=== PATIENT | male | born 1940 | race African-American/Black ===

== ENCOUNTER 2018-09-11 15:56 | Emergency (ER) | payer OTHER ==
[~2018-09-11] VITALS: Ht 172.7 cm; Wt 74.8 kg
[2018-09-11 16:04] VITALS: Ht 172.7 cm; Wt 74.8 kg
[2018-09-11 16:40] LABS: BASOPHIL % 1.1 % (0-2); PLATELET COUNT 188 x10^3mcL (130-400)
[2018-09-11 16:41] LABS: RED CELL DISTRIBUTION WIDTH 19.9 % (11.5-14.5)
[2018-09-11 16:45] LABS: CALCIUM 9.4 mg/dL (8.5-10.1); CARBON DIOXIDE 37.1 mmol/L (21-32); CHLORIDE SERUM 101 mmol/L (98-107); GLUCOSE SERUM 150 mg/dL (74-106); SODIUM SERUM 144 mmol/L (136-145)
[2018-09-11 20:34] VITALS: BP 148/73
== END 2018-09-11 20:34 | disposition home or self-care (01) ==
LOC: ED 15:56
PROVIDERS: Emergency Medicine
DX: T82.838A Hemorrhage due to vascular prosthetic devices, implants and grafts, initial encounter (principal); D68.59 Other primary thrombophilia; I10 Essential (primary) hypertension
CPT/HCPCS: 36415

== ENCOUNTER 2018-11-06 15:47 | Inpatient (IN) | payer OTHER ==
[~2018-11-06] VITALS: Ht 177.8 cm; Wt 62.9 kg
[2018-11-06 16:01] VITALS: Ht 177.8 cm; Wt 62.9 kg
--- NOTE | 2018-11-06 16:39 | NUR ---
INFORMED DR JOHNSON VASCULAR DOPPLER WAS USED AND NO PEDAL PULSES WERE DETECTED TO R SIDE. PT BIBA FROM LOCAL CLINIC TO BE SEEN FOR "GANGRENOUS TOE" PER MEDIC. MEDIC STS PT LIVES AT A [facility]. PT ARRIVED TO ED VIA AMBULANCE WITH CAREGIVER FROM FACILITY BESIDE. CAREGIVER STATED "I AM NEW TO THE FACILITY" AND IS A POOR HISTORIAN FOR PT. PT IS ORIENTED TO HIS NAME, CURRENT PRESIDENT, , CURRENT LOCATION. PT STS HIS FOOT "HAS BEEN THIS WAY FOR ABOUT A WEEK." PT NORMALLY W/C BOUND PER MEDIC FOR APPROX ONE YEAR. PT'S W/C IS AT THE BEDSIDE WITH HIS NAME LABELED ON IT. FEET TO R AND L SIDE ARE WARM TO TOUCH. THE GREAT TOE, 2ND TOE, AND 3RD TOE ARE DRY TO TOUCH WITH DARK DRY APPEARANCE TO SKIN; SKIN ON R GREAT TOE APPEARS TO HAVE SLOUGHED OFF WITH A PINK SHINY CENTER AND WHITE EDGES SURROUNDING WOUND. CAP REFILL UNABLE TO BE DETECTED TO R SIDE TOES AND VERY FAINT APPEARANCE IS PRESENT ON L FT TOES.
--- NOTE | 2018-11-06 16:45 | NUR ---
MSE COMPLETED BY DR JOHNSON. XR TEAM AT BEDSIDE FOR EXAM.
[2018-11-06 17:07] LABS: BASOPHIL % 0.3 % (0-2); PLATELET COUNT 152 x10^3mcL (130-400)
[2018-11-06 17:08] LABS: RED CELL DISTRIBUTION WIDTH 20.1 % (11.5-14.5)
[2018-11-06 17:16] LABS: CALCIUM 8.3 mg/dL (8.5-10.1); CARBON DIOXIDE 30.9 mmol/L (21-32); CHLORIDE SERUM 99 mmol/L (98-107); CREATININE SERUM 3.7 mg/dL (0.7-1.3); GLUCOSE SERUM 158 mg/dL (74-106); POTASSIUM SERUM 3.8 mmol/L (3.5-5.1); SODIUM SERUM 140 mmol/L (136-145)
--- NOTE | 2018-11-06 17:25 | NUR ---
US AT BEDSIDE
[2018-11-06 17:30] LABS: ALKALINE PHOSPHATASE 78 U/L (46-116); ALT/SGPT 6 U/L (16-63); AST/SGOT 8 U/L (15-37); BILIRUBIN TOTAL 0.5 mg/dL (0.20-1.00); C REACTIVE PROTEIN 3.1 mg/dL (<=0.9); URIC ACID 2.1 mg/dL (3.5-7.2)
[2018-11-06 17:34] LABS: ALBUMIN 2.8 g/dL (3.4-5.0)
[2018-11-06 18:02] LABS: ERYTHROCYTE SED RATE 82 mm/hr (0-20)
--- NOTE | 2018-11-06 18:30 | NUR ---
PT READJUSTED SELF ON GUSIMONE. BLANKET PLACED BACK ON PATIENT. REMAINS ON FULL MONITORS. SBR.
--- NOTE | 2018-11-06 19:06 | NUR ---
PER PHARMACY OK TO MIX 1G VANCOMYCIN WITH 250ML D5 BAG AND INFUSE OVER 90 MINS.
--- NOTE | 2018-11-06 20:10 | NUR ---
REPORT CALLED AND GIVEN TO ELAINA SUMNER.
--- NOTE | 2018-11-06 20:17 | NUR ---
RECEIVED PT FROM ED VIA TRAVIS, CAME IN DUE TO TOE PAIN AND WOUND X1 WEEK. AAOX4, BUT HAS PERIODS OF FORGETFULNESS AND CONFUSION. ABLE TO FOLLOW SIMPLE COMMANDS. SPEECH IS CLEAR. HAND TUBE CARRIER ARE WEAK. RIGHT EYE BLIND. LEFT EYE PUPIL IS SLUGGISH. NO SOB NOTED, LUNG SOUNDS DIMINISHED ON AUSCULTATION, O2 SAT=98%, RA. DENIES CHEST PAIN/PRESSURE. DENIES ABDOMINAL DISCOMFORT. W/ SOFT BM TODAY. PT STATED THAT HE STILL URINATES, ON HD EVERY MWF. W/ RUE AV SHUNT, BRUIT AND THRILL PRESENT. W/ +2 EDEMA ON BILATERAL FEET AND DECREASED SENSATION ON BILATERAL FEET. UNABLE TO PALPATE PEDAL PULSES AT THIS TIME, WILL ATTEMPT TO USE DOPPLER. RECEIVED PT FROM ED W/ VANCOMYCIN ONGOING. IV SITE PATENT AND INTACT. W/ SCABS ON BLE AND OPEN WOUND W/ DISCOLORATIONS ON THE RIGHT 1ST-2ND TOE, ALTERATION HAND. SIDE RAILS UPX2. CALL LIGHT ON REACH. HOB ELEVATED AT 30 DEG. ENDORSED TO PRIMARY NURSE DEMIAN FOR CONTINUITY OF CARE
[2018-11-06 20:41] VITALS: BP 135/47
--- NOTE | 2018-11-06 21:30 | NUR ---
VERY FAINT PEDAL PULSES WERE NOTED ON BILATERAL FEET USING A DOPPLER. NOTED PT ALSO HAS A TRACE EDEMA ON THE LEGS
--- NOTE | 2018-11-06 21:35 | NUR ---
PT RECEIVED FROM RESOURCE NURSE. PT A/O X4, FORGETFUL WITH EPISODES OF CONFUSION, ABLE TO MAKE NEEDS KNOWN. MED-SURG, DENIES CP/PRESSURE. MARILEE PEDAL PULSES AUSCULTATED WITH DOPPLER, EDEMA NOTED TO BLE. BREATHING IS EVEN AND UNLABORED ON RA, DENIES SOB, NO RESP DISTRESS NOTED. ABD SOFT AND NONDISTENDED, DENIES N/V. VOIDS FREELY, URINAL AT BEDSIDE. PT ON HEMODIALYSIS ON MWF, RUE AV SHUNT WITH GOOD BRUIT AND THRILL NOTED. GENERALIZED WEAKNESS, ON AIR MATTRESS. WHEELCHAIR AT BEDSIDE. PT ADMITTED FOR RIGHT DIABETIC FOOT INFECTION. SCABS NOTED TO BLE; OPEN WOUND NOTED TO RIGHT GREAT AND SECOND TOES, AIR MOVING TECHNICIAN. PT DENIES HAVING ANY PAIN AT THIS TIME. IV ABX ONGOING TO LAC, PATENT AND INTACT, SITE WNL. NO ACUTE DISTRESS NOTED. ORIENTED PT TO ROOM AND CALL LIGHT. BED IN LOWEST SETTING, SIDE RAILS UP X2, CALL LIGHT WITHIN REACH. WILL CONT TO MONITOR.
--- NOTE | 2018-11-06 23:15 | NUR ---
SPOKE WITH DR WARD REGARDING PT'S PENDING WARFARIN MED. PER DR WARD, "SPOKE WITH PT'S BOARD AND CARE AND PT'S CAREGIVER ABOUT THE WARFARIN, BUT THEY DO NOT KNOW WHY THE PT IS TAKING IT OR THE DOSE."
[2018-11-07 00:38] LABS: microscopic required? YES; urine erythrocyte 1+ (NEGATIVE)
[2018-11-07 00:55] LABS: AMPHETAMINE QUAL UR NONE DETECTED (See below)
--- NOTE | 2018-11-07 01:10 | NUR ---
PT IS ALERT AND AWAKE. BREATHING IS EVEN AND UNLABORED. PT DENIES HAVING ANY PAIN AT THIS TIME. NO ACUTE DISTRESS AT THIS TIME. BED ALARM ON. CALL LIGHT IS WITHIN REACH. WILL CONTINUE TO MONITOR.
--- NOTE | 2018-11-07 05:01 | NUR ---
PT SLEPT AT INTERVALS THROUGHOUT THE SHIFT. BREATHING IS EVEN AND UNLABORED. NO RESP DISTRESS. PATIENT DOES NOT REPORT OF HAVING ANY PAIN AT THIS TIME. NO ACUTE DISTRESS. CALL LIGHT WITHIN REACH.
[2018-11-07 05:50] VITALS: BP 125/53
--- NOTE | 2018-11-07 05:56 | NUR ---
DRSG CHANGE COMPLETED ORDERED. APPLIED THERAHONEY W ADAPTER, 4X4 GAUZE, KERLIX, AND JEANETTE WRAP TO RIGHT FOOT. PT TOLERATED WELL. NO ACUTE DISTRESS NOTED. WILL CONTINUE TO MONITOR.
--- NOTE | 2018-11-07 06:50 | NUR ---
RESIDENT AND MED STUDENT AT BEDSIDE ATTEMPTING TO AUSCULATE PEDAL PULSES WITH DOPPLER. RT FOOT DRSG WAS REMOVED. PER MED STUDENT, "WILL APPLY NEW DRSG." NO ACUTE DISTRESS NOTED. WILL ENDORSE CARE TO AM NURSE.
--- NOTE | 2018-11-07 07:00 | NUR ---
RECEIVED BEDSIDE REPORT FROM ANIMAL CARE PROVIDER NURSE AT THIS TIME. PATINET RESTING IN BED. NO APPARENT DISTRESS OR DISCOMFORT NOTED. BREATHING EVEN AND UNLABORED. NO RESPIRATORY DISTRESS OR DISCOMFORT NOTED. PATIENT DENIES CHEST PAIN/DISCOMFORT. IV PATENT AND INTACT. DRESSING NOTED TO RLE. ALL QUESTIONS AND CONCERNS ADDRESSED. ALL NEEDS ATTENDED TO. WILL CONTINUE TO MONITOR
--- NOTE | 2018-11-07 07:23 | NUR ---
PT IN NO ACUTE DISTRESS. CONTINUITY OF CARE ENDORSED TO ELVIRA DELANEY. ALL QUESTIONS AND CONCERNS ADDRESSED.
[2018-11-07 08:44] VITALS: BP 148/72
--- NOTE | 2018-11-07 10:27 | NUR ---
ALL MORNING MEDICATIONS ADMINISTERED. PATIENT TOLERATED MEDICATIONS WELL. NO APPARENT ADVERSE EFFECTS NOTED. ALL NEEDS ATTENDED TO. WILL CONTINUE TO MONITOR
--- NOTE | 2018-11-07 11:56 | NUR ---
PATIENT BLOOD SUGAR 98 AT THIS TIME. NO INSULIN COVERAGE REQUIRED. ALL NEEDS ATTENDED TO. WILL CONTINUE TO MONITOR
--- NOTE | 2018-11-07 13:00 | NUR ---
PATIENT SITTING UP IN BED EATING LUNCH AT THIS TIME. PATIENT TOLERATED DIET WELL. NO APPARENT DISTRESS OR DISCOMFORT NOTED. ALL NEEDS ATTENDED TO. WILL CONTINUE TO MONITOR
--- NOTE | 2018-11-07 16:59 | NUR ---
PATIENT BLOOD SUGAR 107 AT THIS TIME. NO INSULIN COVERAGE REQUIRED. ALL NEEDS ATTENDED TO. WILL CONTINUE TO MONITOR. CALLED PATIENT AGUSTÍN ARAGON AT THIS TIME TO GET CONSENT FOR HEMODIALYSIS. PATIENT REFUSING TO SIGN ANY DOCUMENTATION AT THIS TIME. NO ANSWER. LEFT VOICE MAIL FOR SON TO CALL [employer] AWAITING CALL BACK AT THIS TIME. ALL QUESTIONS AND CONCERNS ADDRESSED. ALL NEEDS ATTENDED TO. WILL CONTINUE TO MONITOR
[2018-11-07 17:47] VITALS: BP 146/70
--- NOTE | 2018-11-07 18:20 | NUR ---
PATIENT RESTING COMFORTABLY IN BED AT THIS TIME. NO APPARENT DISTRESS OR DISCOMFORT NOTED. IV PATENT AND INTACT. ALL QUESTIONS AND CONCERNS ADDRESSED. ALL NEEDS ATTENDED TO. SAFETY PRECAUTIONS MAINTAINED. WILL ENDORSE ALL CARE TO MANAGER TALENT ACQUISITION NURSE
--- NOTE | 2018-11-07 19:30 | NUR ---
RECEIVED PT FROM DAY SHIFT RN. PT IS ALERT AND ORIENTED TO PERSON PLACE AND SITUATION. CONFUSED AT TIMES. PT CURRENTLY RESTING IN BED. DENIES PAIN. NO SIGNS OR SYMPTOMS OF CHEST PAIN OR SHORTNESS OF BREATH. NO USE OF ACCESSORY MUSCLES OR LABORED BREATHING. NO ACUTE DISTRESS NOTED. BLE +2 PITTING EDEMA NOTED. SHAWNA AV SHUNT NOTED, CDI. BLE SCABS AND OPEN WOUND WITH DISCOLORATION NOTED TO RIGHT 1ST AND 2ND GREAT TOES. LAC 22G IV CLEAN DRY AND INTACT. SAFETY MEASURES ARE IN [place]. BED IS IN THE LOWEST POSITION. CALL LIGHT IS WITHIN REACH. WILL CONTINUE TO MONITOR PT.
[2018-11-07 20:00] VITALS: BP 140/67
--- NOTE | 2018-11-07 20:49 | NUR ---
DIALYSIS CURRENTLY AT THE BEDSIDE. PT TOLERATING WELL. CANNOT ADMINISTER ANY MEDICATIONS AT THIS TIME.
--- NOTE | 2018-11-08 00:02 | NUR ---
PT COMPLETED DIALYSIS WITH 2 L OUT. WILL HOLD BP MEDICATIONS TO REDUCE THE RISK OF HYPOTENSION. PT TOLERATED PROCEDURE WELL. SAFETY MEASURES ARE IN PLACE. BED IN THE LOWEST POSITION. WILL CONTINUE TO MONITOR.
--- NOTE | 2018-11-08 01:36 | NUR ---
PT CURRENTLY RESTING IN BED. NO DISTRESS NOTED. NO USE OF ACCESSORY MUSCLES OR LABORED BREATHING.
--- NOTE | 2018-11-08 01:36 | NUR ---
RESIDENT AWARE OF PT REFUSING MEDICATIONS. NO NEW ORDERS AT THIS TIME.
[2018-11-08 05:20] VITALS: BP 142/62
--- NOTE | 2018-11-08 06:28 | NUR ---
PT SLEPT THROUGHOUT THE REMAINDER OF THE NIGHT. PT HAD BM. CLEANED AND REPOSITIONED. REFUSES AM PROTONIX. SAFETY MEASURES ARE IN PLACE. BED IN THE LOWEST POSITION. CALL LIGHT WITHIN REACH. WILL CONTINUE TO MONITOR.
--- NOTE | 2018-11-08 07:00 | NUR ---
RECEIVED BEDSIDE REPORT FROM ERP SPECIALIST NURSE AT THIS TIME. PATIENT RESTING COMFORTABLY IN BED. NO APPARENT DISTRESS OR DISCOMFORT NOTED. BREATHING EVEN AND UNLABORED. NO RESPIRATORY DISTRESS OR DISCOMFORT NOTED. NO INDICATION OF SHORTNESS OF BREATH. NO INDICATION OF CHEST PAIN/PRESSURE AT THIS TIME. IV PATENT AND INTACT. DRESSING NOTED TO RIGHT LOWER EXTREMITY, CDI. SCABS NOTED TO BLE, RESIDENCE LEASING AGENT. ALL QUESTIONS AND CONCERNS ADDRESSED. ALL NEEDS ATTENDED TO. WILL CONTINUE TO MONITOR
[2018-11-08 07:20] LABS: CALCIUM 8.4 mg/dL (8.5-10.1); CARBON DIOXIDE 28.8 mmol/L (21-32); CHLORIDE SERUM 100 mmol/L (98-107); GLUCOSE SERUM 89 mg/dL (74-106); SODIUM SERUM 141 mmol/L (136-145)
[2018-11-08 07:38] LABS: BASOPHIL % 0.8 % (0-2); PLATELET COUNT 165 x10^3mcL (130-400)
[2018-11-08 07:39] LABS: RED CELL DISTRIBUTION WIDTH 20.4 % (11.5-14.5)
[2018-11-08 08:12] VITALS: BP 132/59
--- NOTE | 2018-11-08 10:00 | NUR ---
MORNING MEDICATIONS ADMINISTERED. PATIENT TOLERATED MEDICATIONS WELL. NO APPARENT ADVERSE EFFECTS NOTED. ALL NEEDS ATTENDED TO. WILL CONTINUE TO MONITOR
--- NOTE | 2018-11-08 11:23 | NUR ---
PATIENT BLOOD SUGAR 159. 3 UNITS INSULIN REQUIRED. PATIENT REFUSING INSULIN COVERAGE AT THIS TIME. WILL NOTIFY DR VIVAS. WILL CONTINUE TO MONITOR
--- NOTE | 2018-11-08 13:24 | NUR ---
PATIENT REFUSING LUNCH AT THIS TIME. PATIENT ALSO REFUSING TO BE TURNED AT THIS TIME. PATIENT STATES HE DOES NOT WANT TO BE BOTHERED. ALL NEEDS ATTENDED TO. WILL TRY AGAIN LATER.
--- NOTE | 2018-11-08 16:12 | NUR ---
SPOKE TO DR VIVAS AT THIS TIME REGARDING PHARMACY CALLING FOR COUMADIN ORDER FOR 1700. PER DR VIVAS, SHE WILL INPUT ORDER FOR COUMADIN. AWAITING ORDER AT THIS TIME. ALL NEEDS ATTENDED TO. WILL CONTINUE TO MONITOR
--- NOTE | 2018-11-08 17:00 | NUR ---
PATIENT REFUSING ACCUCHECKS AND MEDICATIONS AT THIS TIME. PATIENT AGREES TO TAKE COUMADIN, BUT NO OTHER MEDICATION. PATIENT TOLERATED MEDICATION WELL. DR VIVAS AWARE. ALL NEEDS ATTENDED TO. WILL CONTINUE TO MONITOR
[2018-11-08 17:01] VITALS: BP 123/60
--- NOTE | 2018-11-08 19:10 | NUR ---
REPORT RECEIVED FROM DAY SHIFT RN. PATIENT WAS SEEN AND IS RESTING COMFORTABLY IN BED. NO DISTRESS NOTED. BREATHING EVEN AND UNLABORED ON ROOM AIR. NO SOB OR RESP DISTRESS NOTED. DENIES CHEST PAIN/PRESSURE. NO C/O PAIN. NO IV ACCESS. PATIENT REFUSING NEW IV INSERTION. PAGE GATED DR WARD AND MADE HIM AWARE. EDUCATED PATIENT ON THE RISK OF NOT IV ACCESS AND THE BENEFITS. PATIENT STILL REFUSED. STATES "I DONT NEED ONE. WHY DO I NEED THAT. I DONT NEED IT". SHAWNA AV SHUNT. HD PATIENT. ON AIR MATTRESS. BLE SCABS, LISA. RIGHT FOOT W/ KERLIX WRAP, CDI. COMFORT AND SAFETY MEASURES IN PLACE. CALL LIGHT IS WITHIN REACH. BED IS LOCKED AND IN THE LOWEST POSITION. SIDE RAILS UP X2. WILL CONTINUE TO MONITOR.
--- NOTE | 2018-11-08 19:13 | NUR ---
PATIENT RESTING COMFORTABLY IN BED AT THIS TIME. NO APPARENT DISTRESS OR DISCOMFORT NOTED. PATIENT PULLED IV OUT AND REFUSING NEW IV INSERTION AT THIS TIME. ALL QUESTIONS AND CONCERNS ADDRESSED. SAFETY PRECAUTIONS MAINTAINED. ALL NEEDS ATTENDED TO. WILL ENDORSE ALL CARE TO KNOTTING MACHINE OPERATOR PORTABLE NURSE
[2018-11-08 20:41] VITALS: BP 130/61
--- NOTE | 2018-11-08 21:16 | NUR ---
ATTEMPTED TO DO DRESSING CHANGE TO RIGHT FOOT. PATIENT REFUSED.
--- NOTE | 2018-11-09 01:25 | NUR ---
RESTING IN BED WITH EYES CLOSED. NO DISTRESS NOTED. BREATHING EVEN AND UNLABORED. NO S/S OF PAIN NOTED. SAFETY MEASURES IN PLACE. CALL LIGHT IS WITHIN REACH. WILL CONTINUE TO MONITOR.
[2018-11-09 05:12] VITALS: BP 133/58
--- NOTE | 2018-11-09 05:49 | NUR ---
LOW BS 56 AND REPEATED AT 60. GAVE APPLE JUICE X2 WITH 2 PACKETS OF SUGAR. WILL REASSESS. MILD SHAKINESS NOTED TO BLE.
--- NOTE | 2018-11-09 06:13 | NUR ---
BS NOW 77 AFTER APPLE JUICE X2 W/ SUGAR PACKET X2 WAS GIVEN. ADVISED PATIENT TO DRINK 1 MORE APPLE JUICE SINCE BS IS ON THE LOW SIDEM BUT PATIENT REFUSED. STATES "NO I DON'T NEED ANOTHER ONE. MY SUGAR WON'T DROP". ADVISED PATIENT TO MAKE SURE HE EATS BREAKFAST. VERBALIZED UNDERSTANDING. PAGE GATED DR WARD AND MADE HIM AWARE. ATTEMPTED TO PERFORM DRESSING CHANGE TO RIGHT FOOT DRESSING, BUT PATIENT REFUSED DRESSING CHANGE. STATED "ONLY LOOK. DON'T TOUCH IT". WILL CONTINUE TO MONITOR. NO DISTRESS NOTED. CALL LIGHT IS WITHIN REACH.
--- NOTE | 2018-11-09 06:32 | NUR ---
RESTED IN LONG INTERVALS THROUGHOUT THE NIGHT. NO ACUTE CHANGES NOTED. BREATHING EVEN AND UNLABORED ON ROOM AIR. NO SOB OR RESP DISTRESS NOTED. DENIES PAIN AND CHEST PAIN. NO IV ACCESS. REFUSED. RIGHT FOOT DRESSING IN PLACE, CDI. REFUSED DRESSING CHANGE. ALL NEEDS AND CONCERNS ADDRESSED. SAFETY MEASURES IN PLACE. CALL LIGHT IS WITHIN REACH. WILL CONTINUE TO MONITOR AND ENDORSE CARE TO DAY SHIFT RN.
[2018-11-09 06:47] LABS: BASOPHIL % 0.7 % (0-2); PLATELET COUNT 166 x10^3mcL (130-400)
--- NOTE | 2018-11-09 06:56 | NUR ---
PATIENT CLEANED AND CHANGED W/ WARD PASCAL. PATIENT MADE COMFORTABLE IN BED. NO DISTRESS NOTED. WILL ENDORSE CARE TO DAY SHIFT RN
--- NOTE | 2018-11-09 07:00 | NUR ---
RECEIVED BEDSIDE REPORT FROM COLLEGE ATHLETE NURSE AT THIS TIME. PATIENT RESTING COMFORTABLY IN BED. NO APPARENT DISTRESS OR DISCOMFORT NOTED. BREATHING EVEN AND UNLABORED. NO RESPIRATORY DISTRESS OR DISCOMFORT NOTED. NO INDICATION OF SHORTNESS OF BREATH. NO INDICATION OF CHEST PAIN/PRESSURE AT THIS TIME. PATIENT HAS NO IV ACCESS AT THIS TIME. REFUSING IV INSERTION. DRESSING NOTED TO RIGHT LOWER EXTREMITY, CDI. SCABS NOTED TO BLE, LIVESTOCK SALES REPRESENTATIVE. ALL QUESTIONS AND CONCERNS ADDRESSED. ALL NEEDS ATTENDED TO. WILL CONTINUE TO MONITOR
[2018-11-09 07:03] LABS: CALCIUM 8.4 mg/dL (8.5-10.1); CARBON DIOXIDE 27.5 mmol/L (21-32); CHLORIDE SERUM 104 mmol/L (98-107); GLUCOSE SERUM 63 mg/dL (74-106); PHOSPHOROUS 5.2 mg/dL (2.5-4.9); POTASSIUM SERUM 4.5 mmol/L (3.5-5.1); SODIUM SERUM 141 mmol/L (136-145)
[2018-11-09 07:07] LABS: CREATININE SERUM 4.2 mg/dL (0.7-1.3)
[2018-11-09 07:23] LABS: RED CELL DISTRIBUTION WIDTH 21.2 % (11.5-14.5)
[2018-11-09 08:52] VITALS: BP 124/73
--- NOTE | 2018-11-09 09:53 | NUR ---
MORNING MEDICATIONS ADMINISTERED AT THIS TIME. PATIENT TOLERATED WELL. NO APPARENT ADVERSE EFFECTS NOTED. ALL NEEDS ATTENDED TO. WILL CONTINUE TO MONITOR
--- NOTE | 2018-11-09 11:57 | NUR ---
PATIENT BLOOD SUGAR 104 AT THIS TIME. NO INSULIN COVERAGE REQUIRED. ALL NEEDS ATTENDED TO. WILL CONTINUE TO MONITOR
--- NOTE | 2018-11-09 16:52 | NUR ---
PATIENT BLOOD SUGAR 176 AT THIS TIME. PATIENT REFUSING INSULIN COVERAGE AT THIS TIME. PATIENT AGREEING TO DRESSING CHANGE TO RIGHT LOWER EXTREMITY. THERAHONEY APPLIED AND WRAPPED WITH JEANETTE BANDAGE. PATIENT TOLERATED ACTIVITY WELL. NO C/O PAIN/DISCOMFORT. ALL NEEDS ATTENDED TO. WILL CONTINUE TO MONITOR
[2018-11-09 17:07] VITALS: BP 143/80
--- NOTE | 2018-11-09 19:20 | NUR ---
PATIENT RESTING COMFORTABLY IN BED AT THIS TIME. NO APPARENT DISTRESS OR DISCOMFORT NOTED. PATIENT HAS NO IV ACCESS. ALL QUESTIONS AND CONCERNS ADDRESSED. SAFETY PRECAUTIONS MAINTAINED. ALL NEEDS ATTENDED TO. ENDORSED ALL CARE TO INSURANCE CONSULTANT NURSE
--- NOTE | 2018-11-09 19:30 | NUR ---
RECEIVED PT RESTING IN BED, NO ACUTE DISTRESS NOTED. PT SLEEPY BUT EASY TO AROUSE. AOX2 (FORGETFUL AT TIMES). ABLE TO REORIENT. PT BLIND IN RT EYE. MEDSURG PT,DENIES CP. PULSES PALPABLE BUE, WEAK LEFT PEDAL. UNABLE TO ASSESS RT PEDAL, RT FOOT DSG IN PLACE. RESP EVEN AND UNLABORED ON RA, DENIES SOB. DIM BILAT BASES. ABD SOFT, ROUND, DENIES ABD PAIN. HD PT, SHAWNA AV SHUNT, +THRILL/+BRUIT NOTED. PT INCONTINENT AT TIMES. GENERALIZED WEAKNESS, W/C AT BEDSIDE. ON AIR MATTRESS. RT FOOT WRAPPED IN DSG, CDI. BLE SCABS NOTED, INDUSTRIAL TWISTING MACHINE OPERATOR. DENIES PAIN.DSG CHANGED TODAY DURING DAYSHIFT. PT REFUSING IV ACCESS, REFUSAL FORM IN CHART. ALL COMFORT AND SAFETY MEASURES PROVIDED FOR, CALL LIGHT WITHIN REACH, BED IN LOWEST POSITION, WILL CONTINUE TO MONITOR.
[2018-11-09 21:08] VITALS: BP 149/63
--- NOTE | 2018-11-09 21:20 | NUR ---
PT TOLERATED MEDICATIONS WELL, PROVIDED REG 6 U INSULIN FOR BLOOD SUGAR 210, PROVIDED PT SANDWICH AND JUICE D/T PT STATES NOT EATING DINNER. EDUCATED PT IN REGARDS TO S/S OF HYPOGLYCEMIA, PT VERBALIZES UNDERSTANDING, CALL LIGHT WITHIN REACH, BED IN LOWEST POSITION, WILL CONTINUE TO MONITOR.
--- NOTE | 2018-11-10 01:45 | NUR ---
PER ORNAMENTAL METAL ERECTOR, PT HAS LARGE STOOL, PT CLEANED CAREFULLY D/T TENDERNESS IN PRIVATE AREA, PT TOLERATED WELL. PT RESTING IN BED, EYES CLOSED, NO S/S OF PAIN NOTED. WILL CONTINUE TO MONITOR.
--- NOTE | 2018-11-10 05:05 | NUR ---
PT RESTED IN INTERVALS DURING SHIFT, NO ACUTE CHANGES OCCURRING OVERNIGHT. PT CALM AND COOPERATIVE WITH CARE DURING SHIFT, PT HAD ONE BM DURING SHIFT, DENIES N/V/D. ALL COMFORT AND SAFETY MEASURES PROVIDED FOR, CALL LIGHT WITHIN REACH,BED IN LOWEST POSITION, WILL CONTINUE TO MONITOR.
[2018-11-10 05:24] VITALS: BP 138/74
--- NOTE | 2018-11-10 05:40 | NUR ---
UPON PROVIDING PT MORNING MEDICATION, INQUIRED IF PHOTOGRAPHS CAN BE TAKEN SO PROGRESSION OF HEALING CAN BE TRACKED, PT SHOOK HEAD VIGORIOUSLY AND STATES "DON'T GO MESSING WITH MY LEGS RIGHT NOW, I FINALLY FEEL GOOD". EDUCATED PT MEDICATION CAN BE PROIVDED TO EASE THE DISCOMFORT AND PHOTOGRAPHS WILL NEED TO BE TAKEN TODAY. PT REPORTS "LATER ON TODAY IS FINE, JUST NOT RIGHT NOW". PT WISHES WILL BE RESPECTED AT THIS TIME, WILL ATTEMPT TO ASK AGAIN BEFORE END OF SHIFT. CALL LIGHT WITHIN REACH, BED IN LOWEST POSITION, WILL CONTINUE TO MONITOR.
--- NOTE | 2018-11-10 06:00 | NUR ---
RETURNED TO PT ROOM TO ASK IF THE EXPOSED SKIN ON HIS BLE CAN BE PHOTOGRAPHED D/T [facility] FOR SKIN DOCUMENTATION QMONDAY. INFORMED PT I WILL LEAVE HI SDSG TO HIS FOOT IN PLACE AND ONLY TAKE PICTURES OF HIS UNCOVERED SKIN TO HELP OUT DAYSHIFT. PT REPORTS "THEY CAN DO IT, THEY CAN DO IT!" INFORMED PT DAYSHIFT IS BUSIER THAN VENEER GLUE SPREADER AND IT IS HELPFUL FOR US TO TAKE THEM DURING NOC SHIFT, PT BECOMES AGITATED AND STATES "THEY CAN DO IT ALL AT ONCE!". WILL RESPECT PT WISHES AT THIS TIME AND ENDORSE TO DAYSHIFT. CALL LIGHT WITHIN REACH, BED IN LOWEST POSITION, WILL CONTINUE TO MONITOR.
[2018-11-10 06:33] LABS: CARBON DIOXIDE 27.5 mmol/L (21-32); CHLORIDE SERUM 102 mmol/L (98-107); GLUCOSE SERUM 111 mg/dL (74-106); POTASSIUM SERUM 5.4 mmol/L (3.5-5.1); SODIUM SERUM 140 mmol/L (136-145)
[2018-11-10 06:40] LABS: CREATININE SERUM 5.1 mg/dL (0.7-1.3)
[2018-11-10 06:48] LABS: BASOPHIL % 0.5 % (0-2); PLATELET COUNT 180 x10^3mcL (130-400)
[2018-11-10 07:15] LABS: RED CELL DISTRIBUTION WIDTH 21.1 % (11.5-14.5)
--- NOTE | 2018-11-10 07:39 | NUR ---
A+OX3, BLIND IN R EYE, MEDSURG, WEAK PEDAL PULSES, BUE TRACE EDEMA, TAYO GOSUNDS DIMINISHED, TOLERATING RA, BOWEL SOUNDS ACTIVE, INCONTINENT AT TIMES, GENERALIZED WEAKNESS, AIT MATTRESS ON, WC AT BEDSIDE, BLE SCABS DRY WALL APPLICATOR, R 1ST AND 2ND TOE OPEN WOUND WITH DISCOLORATION WITH DRESSING CDI, NO IV ACCESS, PT REFUSING IV ACCESS, MD AWARE.
[2018-11-10 08:53] VITALS: BP 160/67
--- NOTE | 2018-11-10 11:50 | NUR ---
PT RESTING IN BED, NO RESPIRATORY DISTRESS NOTED, DENIES PAIN, CALL LIGHT WITHIN REACH.
--- NOTE | 2018-11-10 12:32 | NUR ---
PT VOIDED AND HAD BM, LINENS AND GOWN CHANGED, PT PULLED AND REPOSITIONED TO R SIDE, PT RESISTIVE TO CARE, VERBALLY ABUSIVE TO STAFF, MEDICAL PSYCHOTHERAPIST ASSISTING PT TO EAT LUNCH, CALL LIGHT WITHIN REACH.
--- NOTE | 2018-11-10 14:14 | NUR ---
PT RESTING IN BED, NO RESPRIATORY DISTRESS NOTED, DENIES PAIN, CALL LIGHT WITHIN REACH.
--- NOTE | 2018-11-10 15:22 | NUR ---
PER LEMUEL DIALYSIS NURSE, PT TO RECEIVE DIALYSIS AFTER 1700.
--- NOTE | 2018-11-10 15:22 | NUR ---
PT RESTING IN BED, NO RESPIRATORY DISTRESS NOTED, DENIES PAIN, CALL LIGHT WITHIN REACH.
--- NOTE | 2018-11-10 15:52 | NUR ---
WOUND TO R FOOT, R 1ST AND 2ND TOES CLEANSED WITH WOUND CLEANSER, PATTED DRY, COVERED IN THERAHONEY, COVERED IN 4X4, WRAPPED IN KERLIX AND JEANETTE WRAP. PICTURES TAKEN AND PLACED IN CHART. NO RESPRIATORY DISTRESS NOTED, CALL LIGHT WITHIN REACH.
--- NOTE | 2018-11-10 17:02 | NUR ---
PT RESTING IN BED, NO RESPIRATORY DISTRESS NOTED, DENIES PAIN, CALL LIGHT WITHIN REACH.
--- NOTE | 2018-11-10 17:33 | NUR ---
PER DIALYSIS NURSE, PT TO HAVE HD AT 2030.
[2018-11-10 17:44] VITALS: BP 149/78
--- NOTE | 2018-11-10 18:52 | NUR ---
PT VOIDED AND HAD SOFT BM, LINENS CHANGED, NO RESPRIATORY DISTRESS NOTED, DENIES PAIN, CALL LIGHT WITHIN REACH.
--- NOTE | 2018-11-10 19:35 | NUR ---
RECEIVED PT FROM DAY SHIFT RN. PT ALERT AND ORIENTED TO SELF. PT BREATHING EVEN AND UNLABORED ON RA. MED SURG PT. DENIES CHEST PAIN. PT UNCOOPERATIVE AND RESSITANT TO CARE, UNABLE TO COMPLETE PT ASSESSMENT AT THIS TIME. PER PT DOES NOT WANT TO BE BOTHERED. CALL BUTTON WITHIN REACH. SAFETY PRECAUTIONS IN PLACE. WILL MONITOR.
--- NOTE | 2018-11-10 19:38 | NUR ---
ENDORSED CARE TO SHANNAN DELANEY.
--- NOTE | 2018-11-10 19:45 | NUR ---
PT MADE AWARE WILL BE RECEIVING HD TONIGHT AND ATTEMPTED TO GET CONSENT SIGNED. PER PT DOES NOT WANT HD. EDUCATED PT ON RISKS/BENEFITS OF RECEIVING HD, PT CONT TO REFUSED HD FOR TONIGHT. DR GAYLE MADE AWARE.
--- NOTE | 2018-11-10 19:47 | NUR ---
PT IS REFUSING TO HAVE DIALYSIS TONIGHT. DR GAYLE MADE AWARE.
--- NOTE | 2018-11-10 19:56 | NUR ---
DR COLUNGA AT BEDSIDE SPEAKING WITH PT IN REGARDS DIALYSIS. PER DR COLUNGA PT CONT TO REFUSE HD.
--- NOTE | 2018-11-10 20:09 | NUR ---
PT SIGNED REFUSAL TREATMENT FOR DIALYSIS AND PLACED IN CHART.
--- NOTE | 2018-11-10 20:31 | NUR ---
DIALYSIS NURSE MADE AWARE PT REFUSED HD.
--- NOTE | 2018-11-10 22:03 | NUR ---
ATTEMPTED TO TAKE PT VS SEVERAL TIMES, PT REFUSED TO GET VS TAKEN. ALSO REFUSED TO TAKE PO SCHEDULED MEDS. DR GAYLE MADE AWARE.
--- NOTE | 2018-11-10 23:11 | NUR ---
PT BP IS HIGH 171/81. ATTEMPTED TO GIVE BP MEDS AT THIS TIME, PT REFUSED TO TAKE MEDS. DR GAYLE MADE AWARE.
[2018-11-10 23:16] VITALS: BP 171/81
--- NOTE | 2018-11-11 | NUR ---
PT AWAKE. DENIES PAIN. BREATHING EVEN AND UNLABORED, NO SOB NOTED. NO SIGNS OF DISTRESS. CALL BUTTON WITHIN REACH. SAFETY PRECAUTIONS IN PLACE. WILL CONTINUE TO MONITOR.
--- NOTE | 2018-11-11 02:30 | NUR ---
ROUNDS MADE. PT AWAKE. BREATHING EVEN AND UNLABORED. NO SIGNS OF DISTRESS NOTED. CALL BUTTON WITHIN REACH. SAFETY PRECAUTIONS IN PLACE. WILL CONTINUE TO MONITOR.
--- NOTE | 2018-11-11 05:25 | NUR ---
PT REFUSED LABS THIS AM. DR GAYLE PAGED AND MADE AWARE.
--- NOTE | 2018-11-11 05:29 | NUR ---
PT SLEPT POORLY. PT BREATHING EVEN AND UNLABORED ON RA. NO SIGNS OF DISTRESS NOTED. PT CONTINUE TO REFUSE MEDICATIONS/CARE/TX. PT ABLE TO TURN AND REPOSITIONED SELF. PT ASSITED TO BE CHANGED/CLEANED NEEDED. PT IN NO SIGNS OF ACUTE DISTRESS AT THIS TIME. SAFETY PRECAUTIONS IN PLACE. WILL CONTINUE TO MONITOR AND ENDORSE CARE TO DAY SHIFT RN.
[2018-11-11 05:50] VITALS: BP 152/76
--- NOTE | 2018-11-11 07:26 | NUR ---
PT RESTING. NO SIGNS OF DISTRESS NOTED. ENDORSED CARE TO DAY SHIFT RN, ALL QUESTIONS ADDRESSED.
--- NOTE | 2018-11-11 07:27 | NUR ---
A+OX2, CONFUSED, ANGRY, AGITATED, RESISTIVE TO CARE, R EYE BLIND, MEDSURG, BLE PEDAL PULSES, BUE TRACE EDEMA, LUNG SOUNDS DIMINISHED, TOLERATING RA, BOWEL SOUNDS ACTIVE, INCONTINENT OF STOOL AND URINE, SHAW[place] AV SHUNT WITH THRILL AND BRUIT PRESENT, GENERALIZED WEAKNESS, WC BOUND, WC AT BEDSIDE, AIR MATTRESS ON, BLE SCABS LISA, R 1ST AND 2ND TOE OPEN WOUNDS WITH DRESSING CDI, NO IV ACCESS, MD AWARE. PER NOC SHIFT RN, PT REFUSED DIALYSIS LAST NIGHT.
[2018-11-11 08:58] VITALS: BP 149/74
--- NOTE | 2018-11-11 09:57 | NUR ---
PT RESTING IN BED, NO RESPIRATORY DISTRESS NOTED, DENIES PAIN, CALL LIGHT WITHIN REACH. PT NOW AGREEABLE TO DIALYSIS AND BLOOD DRAW. WITNESSED PT SIGN CONSENT FOR HD.
--- NOTE | 2018-11-11 10:18 | NUR ---
PER PATRIC CORPORATE COMPLIANCE DIRECTOR, PT TO DC AFTER DIALYSIS. HDEZ DIALYSIS NURSE AWARE PT NEEDS DIALYSIS RUFINA.
[2018-11-11] MEDS ORDERED: AMIODARONE200 MG PO (10:22)
[2018-11-11] MEDS ORDERED: RENVELA800 M1 PO (10:23)
[2018-11-11] MEDS ORDERED: NOR5 PO (10:24)
[2018-11-11 10:25] LABS: BASOPHIL % 1.6 % (0-2); PLATELET COUNT 193 x10^3mcL (130-400)
[2018-11-11] MEDS ORDERED: METOPROLOL TART50 MG PO (10:25)
[2018-11-11] MEDS ORDERED: LISINOPRIL10 MG PO (10:25)
[2018-11-11] MEDS ORDERED: PROTONIX40 MG PO (10:26)
[2018-11-11] MEDS ORDERED: COUMADIN2 MG PO (10:26)
[2018-11-11] MEDS ORDERED: SIMVASTATIN20 M1 PO (10:26)
[2018-11-11] MEDS ORDERED: PHOS PO (10:27)
[2018-11-11] MEDS ORDERED: LANTI SC ×2 (10:28→10:29)
[2018-11-11] MEDS ORDERED: VITAMIN D PO (10:29)
[2018-11-11 10:31] LABS: RED CELL DISTRIBUTION WIDTH 20.7 % (11.5-14.5)
[2018-11-11 10:36] LABS: CARBON DIOXIDE 25.8 mmol/L (21-32); CHLORIDE SERUM 100 mmol/L (98-107); GLUCOSE SERUM 153 mg/dL (74-106); SODIUM SERUM 139 mmol/L (136-145)
[2018-11-11 10:38] LABS: CREATININE SERUM 6.4 mg/dL (0.7-1.3); POTASSIUM SERUM 6.6 mmol/L (3.5-5.1)
--- NOTE | 2018-11-11 10:53 | NUR ---
PATRIC HEAD UP OPERATOR HELPER NOTIFIED OF CR 6.4, BUN 7.3, K 6.6. PT HAVING DIALYSIS AT BEDSIDE. PER CASE MGMT [facility] TO COURT STENOGRAPHER PT FROM [id number].
--- NOTE | 2018-11-11 11:13 | NUR ---
1. Recommend continuing CCHO diet. Discussed with JAZMIN Lamb pt to be D/C today.
--- NOTE | 2018-11-11 11:13 | NUR ---
Initial Nutrition Assessment: 218/A ESCOBAR Ojeda, NII DEE MR Dx: Diabetic foot infection, renal insufficiency (ESRD on HD) PMHx: DM, HTN, ESRD w/HD (M,W,F), HLD PSHx: none Labs: K 5.4H, BUN 57H, CREAT 5.1H, P 6.3H Meds: Colace, D 50%, humulin, Lipitor, phoslo, renagel, zofran Diet: CCHO PO Intake: (11/10) dinner, lunch 50%, breakfast 100%, (11/09) dinner, lunch 75%, breakfast 100% Ht: 177.8 cm (70") Wt: 62.8 kg (138#) BMI: 19.9 kg/m2 Bed scale: 62.9 kg IBW: 166# (75 kg) %IBW: 83 UBW: 138-140# Age: 78/M Food Allergies: NKFA Skin: R foot wound covered w/ dressing. Raúl: 16 Edema: unable to access as pt refused assessment (per RN) GI: Last BM: 11/10 Per H&P, Pt is a 78 year old male with PMH of DM, HTN, ESRD w/HD (M,W,F), HLD came in to the hospital with complaints of infection in the R foot. RDN Visit (11/11): Patient was little drowsy but was responding. Patient said that he finished most of his breakfast this morning. Per progress note (11/10), Patient continues on O2. Patient has been non-compliant with refusal of meds and accuchecks. Problem with: N/V/D/C: slight diarrhea Problems with: Chewing/Swallowing: none Current appetite: good Recent wt change: none %wt change: n/a Vitamin/Supplement use: none Special diet at home: regular, sometimes follows diet that is low in sugar Physical activity: sedentary Nutrition education given: Provided NCM handout on "Diabetes and CKD, stages 1 through 4: nutrition guidelines. Food-drug interactions: Colace- high fiber w/5145-3286 ml fluids Education given: n/a Estimated Nutritional Needs Based on current body weight 63 kg Energy: 6713-4319 kcal/d (30-35 kcal/kg) Protein: 75-94 g/d (1.2-1.5 g/kg) - HD Fluid: per doctor (HD patient) Nutrition Diagnosis 1. Increased nutrient needs related to increased metabolic demands as evidenced by patient on HD. 2. Food and nutrition related knowledge deficit related to no prior exposure to nutrition education as evidenced by patient not following renal/CCHO diet. Intervention 1. Recommend continuing CCHO diet. Discussed with EXPANSION JOINT BUILDER Zainab, pt to be D/C today. Monitor/Evaluate Goal: PO intake at least 75% of estimated needs Monitor: PO intake, Labs, GI function F/U in 3-5 days as moderate risk /-8
--- NOTE | 2018-11-11 12:37 | NUR ---
PT RECEIVING DIALYSIS AT BEDSIDE, NO RESPIRATORY DISTRESS NOTED, DENIES PAIN, CALL LIGHT WITHIN REACH.
[2018-11-11 12:38] VITALS: BP 115/58
--- NOTE | 2018-11-11 14:18 | NUR ---
DIALYSIS COMPLETE: 2 L OUT, VS STABLE, NO RESPIRATORY DISTRESS NOTED, DENIES PAIN, CALL LIGHT WITHIN REACH.
--- NOTE | 2018-11-11 15:38 | NUR ---
WOUNDS TO R 1ST AND 2ND TOES CLEANSED WITH WOUND CARE SOLUTION, PATTED DRY, COVERED IN THERAHONEY, COVERED IN ADAPTIC, COVERED IN 4X4 GAUZE, WRAPPED IN KERLIX AND JEANETTE WRAP. PT RESTING IN BED, NO RESPIRATORY DISTRESS NOTED, DENIES PAIN, CALL LIGHT WITHIN REACH.
--- NOTE | 2018-11-11 15:54 | NUR ---
DINORAH PEPPER NOTIFIED THAT PT WILL BE DC TODAY.
--- NOTE | 2018-11-11 16:27 | NUR ---
PT RESTING IN BED, NO RESPIRATORY DISTRESS NOTED, DENIES PAIN, CALL LIGHT WITHIN REACH.
--- NOTE | 2018-11-11 16:52 | NUR ---
PT PLACED IN OWN CLOTHES AND ALL BELONGINGS PLACED IN PT BELONGING BAG.
--- NOTE | 2018-11-11 18:45 | NUR ---
DC INSTRUCTIONS GIVEN TO CARMEN KENNEDY CAREGIVER FROM [facility] AND [facility] AND VERBALIZED UNDERSTANDING. CARMEN KENNEDY ASSUMED ALL RESPONSIBILITY OF PT AND TRANSPORT HIM BACK TO [facility] AND [facility]. ASSISTED PT TO AND CARE WITH HELP OF STAFF. PT OFF UNIT VIA WC WITH ALL BELONGINGS ESCORTED BY SENIOR APPLICATION PROGRAMMER AND CAREGIVER. PT ASSISTED INTO CARE BY WARD HASKINS, UNIT SEC.
== END 2018-11-11 18:27 | disposition home health service (06) | DRG 299 ==
LOC: ED 15:47 → MU 19:19
PROVIDERS: Emergency Medicine; ADMIT Internal Medicine
DX: E11.52 Type 2 diabetes mellitus with diabetic peripheral angiopathy with gangrene (principal); N18.6 End stage renal disease; I12.0 Hypertensive chronic kidney disease with stage 5 chronic kidney disease or end stage renal disease; N39.0 Urinary tract infection, site not specified; I70.261 Atherosclerosis of native arteries of extremities with gangrene, right leg; E11.22 Type 2 diabetes mellitus with diabetic chronic kidney disease; E11.65 Type 2 diabetes mellitus with hyperglycemia; F03.90 Unspecified dementia, unspecified severity, without behavioral disturbance, psychotic disturbance, mood disturbance, and anxiety; Z99.3 Dependence on wheelchair; Z99.2 Dependence on renal dialysis; Z68.22 Body mass index [BMI] 22.0-22.9, adult; Z79.84 Long term (current) use of oral hypoglycemic drugs
CPT/HCPCS: 82962; G0378; J0696; J2543; J3370; J7030; J7050; Q0092